=== PATIENT | female | born 1980 | race African-American/Black ===

== ENCOUNTER 2018-10-08 08:22 | Emergency (ER) | payer MEDICAID ==
[~2018-10-08] VITALS: Ht 167.6 cm; Wt 72.6 kg
--- NOTE | 2018-10-08 08:27 | NUR ---
PT AMBULATED TO ER BED 11
[2018-10-08 08:29] VITALS: BP 107/70
--- NOTE | 2018-10-08 08:29 | NUR ---
38 Y FEMALE C/O DYSURIA AND PELVIC PAIN 10/23. DENIES FLANK PAIN. DENIES N/V/D. ALSO C/O R EYE DISCHARGE COLORED GREEN/YELLOW AND STATES EYE IS CRUSTY UPON AWAKENING. PATIENT STATES "I THINK I HAVE A BLADDER INFECTION". VSS AT THIS TIME. [id number]. BED IS DOWN, LOCKED, BED RAIL X 1, ERMD TO SEE PT. PMH- DENIES
--- NOTE | 2018-10-08 08:35 | NUR ---
DR PUENTE AT BEDSIDE FOR PT EVALUATION
[2018-10-08 08:53] VITALS: BP 107/70
--- NOTE | 2018-10-08 08:53 | NUR ---
Written and verbal after care instructions given and explained. Patient alert, oriented and verbalized understanding of instructions. Ambulatory with steady gait. All questions addressed prior to discharge. ID band removed. Rx of SULFACETAMIDE SODIUM OPHTHALMIC SOLUTION, CEPHALEXIN given. Patient educated on indication of medication including possible reaction and side effects. Opportunity to ask questions provided and answered.
== END 2018-10-08 08:53 | disposition home or self-care (01) ==
LOC: MED 08:22
DX: N39.0 Urinary tract infection, site not specified (principal); H10.9 Unspecified conjunctivitis; F12.10 Cannabis abuse, uncomplicated
CPT/HCPCS: 81002; 81025; 99283

== ENCOUNTER 2018-10-14 22:13 | Emergency (ER) | payer MEDICAID ==
[~2018-10-14] VITALS: Ht 165.1 cm; Wt 84.8 kg
--- NOTE | 2018-10-14 22:17 | NUR ---
1ST CALL FOR PT IN LOBBY AND OUTSIDE. NO ANSWER.
[2018-10-14 22:22] VITALS: BP 112/31
--- NOTE | 2018-10-14 22:29 | NUR ---
PT AMBUALTED TO LOBBY.
== END 2018-10-15 00:45 | disposition left against medical advice (07) ==
LOC: MED 22:13
DX: R10.31 Right lower quadrant pain (principal); Z53.21 Procedure and treatment not carried out due to patient leaving prior to being seen by health care provider

== ENCOUNTER 2018-10-15 05:10 | Emergency (ER) | payer MEDICAID ==
[~2018-10-15] VITALS: Ht 165.1 cm; Wt 83.9 kg
[2018-10-15 05:16] VITALS: BP 111/67
--- NOTE | 2018-10-15 05:22 | NUR ---
PT AMBULATED TO BED 2
--- NOTE | 2018-10-15 05:22 | NUR ---
38 YO FEMALE COMES TO ED FOR C/O LLQ ABD PAIN. PT STATES PAIN IS ACHINESS 12/23 X 1 DAY. ACTIVE BS X4 QUAD. LAST BM 10/14/18. DENIES N/V/D. VOIDING APPROPRIATELY, DENIES DYSURIA/ FLANK PAIN. DENIES FEVER OR CHILLS. PT SITTING UP IN GURNEY LOCKED WITH X1 SIDE RAIL UP. WILL UPDATE ERMD. LMP: 10/02/18 ALLERGIES: NKA
[2018-10-15] MEDS: KETOROLAC 30 MG/ML VIAL IM ONE (06:20)
[2018-10-15 06:38] VITALS: BP 101/62
--- NOTE | 2018-10-15 06:40 | NUR ---
Patient discharged with v/s stable. Written and verbal after care instructions given and explained. Patient verbalized understanding. Ambulatory with steady gait. All questions addressed prior to discharge. Advised to follow up with PMD.
== END 2018-10-15 06:40 | disposition home or self-care (01) ==
LOC: MED 05:10
DX: R10.31 Right lower quadrant pain (principal)
CPT/HCPCS: 81002; 81025; 96372; 99283; J1885

== ENCOUNTER 2019-03-29 07:45 | Emergency (ER) | payer MEDICAID ==
[~2019-03-29] VITALS: Ht 165.1 cm; Wt 83.5 kg
--- NOTE | 2019-03-29 07:51 | NUR ---
PT AMBULATED TO ER BED 03
[2019-03-29 07:52] VITALS: BP 127/76
--- NOTE | 2019-03-29 07:53 | NUR ---
38 Y/O F C/O PAINFUL URINATION THIS MORNING WITH BLOOD IN THE URINE. PT STATES NO N/V/F. VS STABLE. PT URINE COLECTED. PT POSITIONED FOR COMFORT, BED LOWERED, SIDE RAIL X1 IN PLACE. BOYFRIEND AT BEDSIDE. NKA MEDHX:NONE
[2019-03-29 08:12] VITALS: BP 127/76
--- NOTE | 2019-03-29 08:13 | NUR ---
Patient discharged with v/s stable. Written and verbal after care instructions given and explained. Patient alert, oriented and verbalized understanding of instructions. Ambulatory with steady gait. All questions addressed prior to discharge. ID band removed. Patient advised to follow up with PMD. Rx of pHENAZOPYRIDINE, BACTRIM given. Patient educated on indication of medication including possible reaction and side effects. Opportunity to ask questions provided and answered.
== END 2019-03-29 08:13 | disposition home or self-care (01) ==
LOC: MED 07:45
DX: N39.0 Urinary tract infection, site not specified (principal)
CPT/HCPCS: 81002; 81025; 99283